=== PATIENT | female | born 1955 | race Caucasian/White ===

== ENCOUNTER → 2019-05-04 | Outpatient (CLI) | payer MEDICARE, OTHER ==
[2019-05-04 16:52] LABS: HEMATOCRIT 39.6 % (37.0-47.0); HEMOGLOBIN 12.4 g/dL (12.5-16.0); MEAN CELL VOLUME 87 fl (78-100); MEAN CORPUSCULAR HEMOGLOBIN 27 pg (27-31); MEAN CORPUSCULAR HGB CONC 31 g/dL (33-37); MEAN PLATELET VOLUME 8.9 fl (7.4-10.4); PLATELET COUNT 251 K/mm3 (130-400); RED BLOOD COUNT 4.56 M/mm3 (4.10-5.30); RED CELL DISTRIBUTION WIDTH 15.1 % (11.5-14.5); WHITE BLOOD COUNT 13.5 K/mm3 (4.8-10.8)
[2019-05-04 16:57] LABS: ALBUMIN 4.2 g/dL (3.4-4.8)
[2019-05-04 16:58] LABS: POTASSIUM 3.6 mmol/L (3.5-5.1)
[2019-05-04 16:59] LABS: CALCIUM 10.2 mg/dL (8.3-10.5)
[2019-05-04 17:00] LABS: TOTAL PROTEIN 8.3 g/dL (6.2-8.1)
[2019-05-04 17:02] LABS: TOTAL BILIRUBIN 0.4 mg/dL (0.2-1.2)
[2019-05-04 17:38] LABS: LYMPHOCYTE 13 % (20-51); MONOCYTE 5 % (3-10); NEUTROPHILS 79 % (42-75)
[2019-05-04 17:57] LABS: URINE APPEARANCE CLEAR; URINE COLOR YELLOW
[2019-05-04 17:58] LABS: URINE BILIRUBIN NEGATIVE (NEGATIVE); URINE BLOOD NEGATIVE (NEGATIVE); URINE GLUCOSE NEGATIVE (NEGATIVE); URINE KETONE NEGATIVE (NEGATIVE); URINE LEUKOCYTE ESTERASE NEGATIVE (NEGATIVE); URINE NITRATE NEGATIVE (NEGATIVE); URINE PROTEIN(semi-quant) 1+ mg/dL (NEGATIVE); URINE UROBILINOGEN NORMAL (NORMAL)
== END ==
LOC: LAB 16:24
DX: N18.5 Chronic kidney disease, stage 5 (principal); E03.9 Hypothyroidism, unspecified

== ENCOUNTER 2019-06-01 12:11 | Emergency (ER) | payer MEDICARE, OTHER ==
[~2019-06-01] VITALS: Ht 170.2 cm; Wt 118.6 kg
[2019-06-01] MEDS ORDERED: AMLODIPINE BESYL5 MG PO (12:33)
[2019-06-01] MEDS ORDERED: VITAMIN D32000 UNI1 PO (12:34)
[2019-06-01] MEDS ORDERED: LEVOTHYROXIN0.025 MG PO (12:35)
[2019-06-01] MEDS ORDERED: COLACE100 M1 PO (12:35)
[2019-06-01] MEDS ORDERED: DULOXETINE60 MG PO (12:35)
[2019-06-01] MEDS ORDERED: MAG-OX 400400 MG/TAB PO (12:36)
[2019-06-01] MEDS ORDERED: MYFORTIC360 MG PO (12:37)
[2019-06-01] MEDS ORDERED: PANTOPRAZOLE SO40 MG PO (12:37)
[2019-06-01] MEDS ORDERED: NYSTATIN 100MU/M1 ML PO (12:37)
[2019-06-01] MEDS ORDERED: MIRALAX119 GM PO (12:38)
[2019-06-01] MEDS ORDERED: PREDNISONE 5MG5 MG PO (12:41)
[2019-06-01] MEDS ORDERED: SULFAMETHOXAZO1 EACH PO (12:41)
[2019-06-01] MEDS ORDERED: TACROLIMUS1 MG PO (12:42)
[2019-06-01] MEDS ORDERED: VALCYTE450 MG PO (12:42)
[2019-06-01] MEDS ORDERED: ACETAMINOPHEN-H1 TA1 PO (12:42)
[2019-06-01] MEDS ORDERED: ZOLPIDEM TART10 MG PO (12:45)
[2019-06-01 12:57] LABS: HEMATOCRIT 32.9 % (37.0-47.0); MEAN CELL VOLUME 90 fl (78-100); MEAN CORPUSCULAR HEMOGLOBIN 27 pg (27-31); MEAN CORPUSCULAR HGB CONC 30 g/dL (33-37); MEAN PLATELET VOLUME 9.3 fl (7.4-10.4); PLATELET COUNT 154 K/mm3 (130-400); RED BLOOD COUNT 3.66 M/mm3 (4.10-5.30); RED CELL DISTRIBUTION WIDTH 16.5 % (11.5-14.5); WHITE BLOOD COUNT 13.2 K/mm3 (4.8-10.8)
[2019-06-01 13:00] LABS: ALBUMIN 3.7 g/dL (3.4-4.8); POTASSIUM 4.6 mmol/L (3.5-5.1)
[2019-06-01 13:03] LABS: TOTAL PROTEIN 6.3 g/dL (6.2-8.1)
[2019-06-01 13:05] LABS: TOTAL BILIRUBIN 0.6 mg/dL (0.2-1.2)
[2019-06-01 13:07] LABS: BAND 3 % (0-10); LYMPHOCYTE 3 % (20-51); MONOCYTE 2 % (3-10); NEUTROPHILS 88 % (42-75)
[2019-06-01 14:06] LABS: URINE APPEARANCE CLEAR; URINE BILIRUBIN NEGATIVE (NEGATIVE); URINE BLOOD NEGATIVE (NEGATIVE); URINE COLOR YELLOW; URINE GLUCOSE NEGATIVE (NEGATIVE); URINE KETONE NEGATIVE (NEGATIVE); URINE LEUKOCYTE ESTERASE NEGATIVE (NEGATIVE); URINE NITRATE NEGATIVE (NEGATIVE); URINE PROTEIN(semi-quant) TRACE mg/dL (NEGATIVE); URINE UROBILINOGEN NORMAL (NORMAL)
[2019-06-01] MEDS ORDERED: NORCO 10-325 T1 EACH PO (15:09)
[2019-06-01 15:11] VITALS: BP 175/91
== END 2019-06-01 15:23 | disposition home or self-care (01) ==
LOC: ED 12:11
PROVIDERS: Nurse Practitioner
DX: G89.18 Other acute postprocedural pain (principal); I10 Essential (primary) hypertension; K21.9 Gastro-esophageal reflux disease without esophagitis; Z96.643 Presence of artificial hip joint, bilateral; Z87.891 Personal history of nicotine dependence; Z94.0 Kidney transplant status; Z79.52 Long term (current) use of systemic steroids
CPT/HCPCS: J7030

== ENCOUNTER → 2019-06-26 | Outpatient (CLI) | payer MEDICARE, OTHER ==
[2019-06-01 15:11] VITALS: BP 175/91
[~2019-06-26] MED LIST: ACETAMINOPHEN-H1 TA1 PO; AMLODIPINE BESYL5 MG PO; COLACE100 M1 PO; DULOXETINE60 MG PO; LEVOTHYROXIN0.025 MG PO; MAG-OX 400400 MG/TAB PO; MIRALAX119 GM PO; MYFORTIC360 MG PO; NORCO 10-325 T1 EACH PO; NYSTATIN 100MU/M1 ML PO; PANTOPRAZOLE SO40 MG PO; PREDNISONE 5MG5 MG PO; SULFAMETHOXAZO1 EACH PO; TACROLIMUS1 MG PO; VALCYTE450 MG PO; VITAMIN D32000 UNI1 PO; ZOLPIDEM TART10 MG PO
[2019-06-26 10:34] LABS: HEMATOCRIT 33.9 % (37.0-47.0); HEMOGLOBIN 10.6 g/dL (12.5-16.0); MEAN CELL VOLUME 87 fl (78-100); MEAN CORPUSCULAR HEMOGLOBIN 27 pg (27-31); MEAN CORPUSCULAR HGB CONC 31 g/dL (33-37); MEAN PLATELET VOLUME 9.6 fl (7.4-10.4); PLATELET COUNT 258 K/mm3 (130-400); RED BLOOD COUNT 3.89 M/mm3 (4.10-5.30); RED CELL DISTRIBUTION WIDTH 15.2 % (11.5-14.5); WHITE BLOOD COUNT 11.7 K/mm3 (4.8-10.8)
[2019-06-26 11:06] LABS: ALBUMIN 3.7 g/dL (3.4-4.8); POTASSIUM 4.5 mmol/L (3.5-5.1)
[2019-06-26 11:07] LABS: CALCIUM 9.4 mg/dL (8.3-10.5)
[2019-06-26 11:15] LABS: MAGNESIUM 1.07 mg/dL (1.60-2.60)
[2019-06-26 11:48] LABS: URINE APPEARANCE HAZY; URINE BILIRUBIN NEGATIVE (NEGATIVE); URINE BLOOD TRACE (NEGATIVE); URINE COLOR YELLOW; URINE GLUCOSE NEGATIVE (NEGATIVE); URINE KETONE NEGATIVE (NEGATIVE); URINE LEUKOCYTE ESTERASE NEGATIVE (NEGATIVE); URINE NITRATE NEGATIVE (NEGATIVE); URINE PROTEIN(semi-quant) NEGATIVE (NEGATIVE); URINE UROBILINOGEN NORMAL (NORMAL); URINE WBC 0-1 /hpf (0-3)
[2019-06-26 12:06] LABS: LYMPHOCYTE 5 % (20-51); MONOCYTE 4 % (3-10); NEUTROPHILS 90 % (42-75)
[2019-06-27 14:04] LABS: TACROLIMUS (PROGRAF) 25.8 ng/mL (5.0-15.0)
== END ==
LOC: LAB 09:23
DX: Z48.22 Encounter for aftercare following kidney transplant (principal); Z94.0 Kidney transplant status; Z79.899 Other long term (current) drug therapy

== ENCOUNTER → 2019-07-09 | Outpatient (CLI) | payer MEDICARE, OTHER ==
[2019-07-09 10:20] LABS: HEMATOCRIT 34.1 % (37.0-47.0); HEMOGLOBIN 10.7 g/dL (12.5-16.0); MEAN CELL VOLUME 87 fl (78-100); MEAN CORPUSCULAR HEMOGLOBIN 27 pg (27-31); MEAN CORPUSCULAR HGB CONC 31 g/dL (33-37); MEAN PLATELET VOLUME 8.9 fl (7.4-10.4); PLATELET COUNT 264 K/mm3 (130-400); RED CELL DISTRIBUTION WIDTH 16.2 % (11.5-14.5); WHITE BLOOD COUNT 13.1 K/mm3 (4.8-10.8)
[2019-07-09 10:30] LABS: ALBUMIN 3.9 g/dL (3.4-4.8)
[2019-07-09 10:31] LABS: POTASSIUM 4.3 mmol/L (3.5-5.1)
[2019-07-09 10:32] LABS: CALCIUM 9.5 mg/dL (8.3-10.5)
[2019-07-09 10:35] LABS: LYMPHOCYTE 4 % (20-51); MONOCYTE 3 % (3-10); NEUTROPHILS 92 % (42-75)
[2019-07-09 10:39] LABS: MAGNESIUM 1.34 mg/dL (1.60-2.60)
[2019-07-09 18:03] LABS: PH-URINE 5.5 (5.0 - 8.0); URINE APPEARANCE CLEAR; URINE BILIRUBIN NEGATIVE (NEGATIVE); URINE BLOOD NEGATIVE (NEGATIVE); URINE COLOR YELLOW; URINE GLUCOSE NEGATIVE (NEGATIVE); URINE KETONE NEGATIVE (NEGATIVE); URINE NITRATE NEGATIVE (NEGATIVE); URINE PROTEIN(semi-quant) NEGATIVE (NEGATIVE); URINE UROBILINOGEN NORMAL (NORMAL)
[2019-07-09 18:04] LABS: URINE LEUKOCYTE ESTERASE NEGATIVE (NEGATIVE); URINE MUCUS PRESENT (NOT PRESENT)
== END ==
LOC: LAB 10:04
DX: Z48.22 Encounter for aftercare following kidney transplant (principal); Z79.899 Other long term (current) drug therapy

== ENCOUNTER → 2019-07-24 | Outpatient (CLI) | payer MEDICARE, OTHER ==
[2019-07-24 07:08] LABS: HEMATOCRIT 36.1 % (37.0-47.0); HEMOGLOBIN 11.3 g/dL (12.5-16.0); MEAN CELL VOLUME 90 fl (78-100); MEAN CORPUSCULAR HEMOGLOBIN 28 pg (27-31); MEAN CORPUSCULAR HGB CONC 31 g/dL (33-37); MEAN PLATELET VOLUME 9.6 fl (7.4-10.4); PLATELET COUNT 195 K/mm3 (130-400); RED BLOOD COUNT 4.03 M/mm3 (4.10-5.30); RED CELL DISTRIBUTION WIDTH 17.2 % (11.5-14.5); WHITE BLOOD COUNT 11.5 K/mm3 (4.8-10.8)
[2019-07-24 07:16] LABS: ALBUMIN 3.9 g/dL (3.4-4.8); POTASSIUM 4.3 mmol/L (3.5-5.1)
[2019-07-24 07:17] LABS: CALCIUM 9.5 mg/dL (8.3-10.5)
[2019-07-24 07:29] LABS: LYMPHOCYTE 5 % (20-51); MONOCYTE 5 % (3-10); NEUTROPHILS 90 % (42-75); OVALOCYTES 1+; POLYCHROMASIA 1+; TEAR DROP CELLS 1+
== END ==
LOC: LAB 06:52
PROVIDERS: Internal Medicine
DX: Z48.22 Encounter for aftercare following kidney transplant (principal); Z79.899 Other long term (current) drug therapy

== ENCOUNTER → 2019-08-02 | Outpatient (CLI) | payer MEDICARE, OTHER ==
[2019-08-02 07:51] LABS: EOS # 0.1 (0.04-0.40); EOS % 1.9 % (1.0-5.0); HEMATOCRIT 36.5 % (37.0-47.0); HEMOGLOBIN 11.4 g/dL (12.5-16.0); MEAN CELL VOLUME 90 fl (78-100); MEAN CORPUSCULAR HEMOGLOBIN 28 pg (27-31); MEAN CORPUSCULAR HGB CONC 31 g/dL (33-37); MEAN PLATELET VOLUME 9.1 fl (7.4-10.4); MONO # 0.1 (0.20-0.80); NEU # 2.5 (1.40-6.50); PLATELET COUNT 180 K/mm3 (130-400); RED BLOOD COUNT 4.05 M/mm3 (4.10-5.30); RED CELL DISTRIBUTION WIDTH 16.5 % (11.5-14.5); WHITE BLOOD COUNT 3.2 K/mm3 (4.8-10.8)
[2019-08-02 07:54] LABS: LYMPH# 0.4 (1.50-4.00)
[2019-08-02 08:11] LABS: URINE APPEARANCE CLEAR; URINE BILIRUBIN NEGATIVE (NEGATIVE); URINE BLOOD NEGATIVE (NEGATIVE); URINE COLOR YELLOW; URINE GLUCOSE NEGATIVE (NEGATIVE); URINE KETONE NEGATIVE (NEGATIVE); URINE LEUKOCYTE ESTERASE NEGATIVE (NEGATIVE); URINE MUCUS PRESENT (NOT PRESENT); URINE NITRATE NEGATIVE (NEGATIVE); URINE PROTEIN(semi-quant) TRACE mg/dL (NEGATIVE); URINE UROBILINOGEN NORMAL (NORMAL)
[2019-08-02 08:14] LABS: ALBUMIN 4.1 g/dL (3.4-4.8); POTASSIUM 4.1 mmol/L (3.5-5.1)
[2019-08-02 08:16] LABS: CALCIUM 9.6 mg/dL (8.3-10.5)
[2019-08-02 08:22] LABS: MAGNESIUM 1.55 mg/dL (1.60-2.60)
[2019-08-03 16:16] LABS: TACROLIMUS (PROGRAF) 9.2 ng/mL (5.0-15.0)
== END ==
LOC: LAB 07:37
PROVIDERS: Internal Medicine
DX: Z48.22 Encounter for aftercare following kidney transplant (principal); Z51.81 Encounter for therapeutic drug level monitoring; Z79.899 Other long term (current) drug therapy

== ENCOUNTER → 2019-09-25 | Outpatient (CLI) | payer MEDICARE, OTHER ==
[2019-09-25 07:18] LABS: HEMATOCRIT 38.6 % (37.0-47.0); HEMOGLOBIN 12.4 g/dL (12.5-16.0); MEAN CELL VOLUME 91 fl (78-100); MEAN CORPUSCULAR HEMOGLOBIN 29 pg (27-31); MEAN CORPUSCULAR HGB CONC 32 g/dL (33-37); MEAN PLATELET VOLUME 8.9 fl (7.4-10.4); PLATELET COUNT 228 K/mm3 (130-400); RED BLOOD COUNT 4.24 M/mm3 (4.10-5.30); RED CELL DISTRIBUTION WIDTH 14.4 % (11.5-14.5); WHITE BLOOD COUNT 10.8 K/mm3 (4.8-10.8)
[2019-09-25 07:34] LABS: CALCIUM 9.8 mg/dL (8.3-10.5)
[2019-09-25 07:41] LABS: MAGNESIUM 1.67 mg/dL (1.60-2.60)
[2019-09-25 07:45] LABS: LYMPHOCYTE 7 % (20-51); MONOCYTE 3 % (3-10); NEUTROPHILS 88 % (42-75); OVALOCYTES 2+; TEAR DROP CELLS 1+
[2019-09-25 19:29] LABS: URINE APPEARANCE HAZY; URINE BILIRUBIN NEGATIVE (NEGATIVE); URINE BLOOD NEGATIVE (NEGATIVE); URINE COLOR YELLOW; URINE GLUCOSE NEGATIVE (NEGATIVE); URINE KETONE NEGATIVE (NEGATIVE); URINE LEUKOCYTE ESTERASE NEGATIVE (NEGATIVE); URINE NITRATE NEGATIVE (NEGATIVE); URINE PROTEIN(semi-quant) TRACE mg/dL (NEGATIVE); URINE UROBILINOGEN NORMAL (NORMAL)
== END ==
LOC: LAB 07:02
DX: Z48.22 Encounter for aftercare following kidney transplant (principal); Z79.899 Other long term (current) drug therapy

== ENCOUNTER → 2019-10-01 | Outpatient (CLI) | payer MEDICARE, OTHER ==
[2019-10-01 07:22] LABS: HEMATOCRIT 38.7 % (37.0-47.0); HEMOGLOBIN 12.5 g/dL (12.5-16.0); MEAN CELL VOLUME 90 fl (78-100); MEAN CORPUSCULAR HEMOGLOBIN 29 pg (27-31); MEAN CORPUSCULAR HGB CONC 32 g/dL (33-37); PLATELET COUNT 225 K/mm3 (130-400); RED BLOOD COUNT 4.29 M/mm3 (4.10-5.30); RED CELL DISTRIBUTION WIDTH 14.2 % (11.5-14.5); WHITE BLOOD COUNT 9.5 K/mm3 (4.8-10.8)
[2019-10-01 08:41] LABS: LYMPHOCYTE 10 % (20-51); MONOCYTE 2 % (3-10); NEUTROPHILS 88 % (42-75)
[2019-10-01 10:24] LABS: ALBUMIN 4.2 g/dL (3.4-4.8); POTASSIUM 4.1 mmol/L (3.5-5.1)
[2019-10-01 10:26] LABS: CALCIUM 11.3 mg/dL (8.3-10.5)
== END ==
LOC: LAB 07:02
PROVIDERS: Internal Medicine
DX: Z48.22 Encounter for aftercare following kidney transplant (principal); Z79.899 Other long term (current) drug therapy

== ENCOUNTER → 2019-10-25 | Outpatient (CLI) | payer MEDICARE, OTHER ==
[2019-10-25 07:26] LABS: HEMATOCRIT 37.2 % (37.0-47.0); HEMOGLOBIN 11.9 g/dL (12.5-16.0); MEAN CELL VOLUME 91 fl (78-100); MEAN CORPUSCULAR HEMOGLOBIN 29 pg (27-31); MEAN CORPUSCULAR HGB CONC 32 g/dL (33-37); MEAN PLATELET VOLUME 9.1 fl (7.4-10.4); PLATELET COUNT 214 K/mm3 (130-400); RED BLOOD COUNT 4.07 M/mm3 (4.10-5.30); RED CELL DISTRIBUTION WIDTH 13.6 % (11.5-14.5)
[2019-10-25 07:34] LABS: ALBUMIN 3.9 g/dL (3.4-4.8)
[2019-10-25 07:35] LABS: URINE APPEARANCE CLEAR; URINE BILIRUBIN NEGATIVE (NEGATIVE); URINE BLOOD TRACE (NEGATIVE); URINE COLOR YELLOW; URINE GLUCOSE NEGATIVE (NEGATIVE); URINE KETONE NEGATIVE (NEGATIVE); URINE LEUKOCYTE ESTERASE NEGATIVE (NEGATIVE); URINE MUCUS PRESENT (NOT PRESENT); URINE NITRATE NEGATIVE (NEGATIVE); URINE PROTEIN(semi-quant) TRACE mg/dL (NEGATIVE); URINE UROBILINOGEN NORMAL (NORMAL)
[2019-10-25 07:36] LABS: CALCIUM 8.6 mg/dL (8.3-10.5)
[2019-10-25 07:43] LABS: MAGNESIUM 1.53 mg/dL (1.60-2.60)
[2019-10-25 07:51] LABS: LYMPHOCYTE 5 % (20-51); MONOCYTE 4 % (3-10); NEUTROPHILS 88 % (42-75); OVALOCYTES 1+
[2019-10-25 16:16] LABS: PTH,INTACT 126.6 pg/mL (6.6-88.9)
[2019-10-26 12:16] LABS: TACROLIMUS (PROGRAF) 7.7 ng/mL (5.0-15.0)
[2019-10-30 14:35] LABS: CYTOMEGALOVIRUS DNA PCR Not Detected (()); CYTOMEGALOVIRUS DNA PCR LOG Not Detected (())
== END ==
LOC: LAB 07:06
DX: Z48.22 Encounter for aftercare following kidney transplant (principal); Z79.899 Other long term (current) drug therapy

== ENCOUNTER → 2019-11-20 | Outpatient (CLI) | payer MEDICARE, OTHER ==
[2019-11-20 07:28] LABS: HEMATOCRIT 39.5 % (37.0-47.0); HEMOGLOBIN 12.4 g/dL (12.5-16.0); MEAN CELL VOLUME 91 fl (78-100); MEAN CORPUSCULAR HEMOGLOBIN 29 pg (27-31); MEAN CORPUSCULAR HGB CONC 31 g/dL (33-37); MEAN PLATELET VOLUME 9.1 fl (7.4-10.4); PLATELET COUNT 259 K/mm3 (130-400); RED BLOOD COUNT 4.35 M/mm3 (4.10-5.30); RED CELL DISTRIBUTION WIDTH 13.8 % (11.5-14.5)
[2019-11-20 08:16] LABS: POTASSIUM 3.9 mmol/L (3.5-5.1)
[2019-11-20 08:17] LABS: CALCIUM 9.6 mg/dL (8.3-10.5)
[2019-11-20 08:21] LABS: WHITE BLOOD COUNT 20.3 K/mm3 (4.8-10.8)
[2019-11-20 08:22] LABS: LYMPHOCYTE 6 % (20-51); MONOCYTE 6 % (3-10); NEUTROPHILS 87 % (42-75)
[2019-11-20 08:24] LABS: MAGNESIUM 1.77 mg/dL (1.60-2.60)
[2019-11-20 21:59] LABS: PH-URINE 5.5 (5.0 - 8.0); URINE APPEARANCE CLOUDY; URINE BILIRUBIN NEGATIVE (NEGATIVE); URINE BLOOD TRACE (NEGATIVE); URINE COLOR YELLOW; URINE GLUCOSE NEGATIVE (NEGATIVE); URINE KETONE NEGATIVE (NEGATIVE); URINE LEUKOCYTE ESTERASE TRACE (NEGATIVE); URINE NITRATE NEGATIVE (NEGATIVE); URINE PROTEIN(semi-quant) TRACE mg/dL (NEGATIVE); URINE UROBILINOGEN NORMAL (NORMAL)
[2019-11-20 22:01] LABS: URINE MUCUS PRESENT (NOT PRESENT)
[2019-11-22 14:51] LABS: CYTOMEGALOVIRUS DNA PCR Not Detected (()); CYTOMEGALOVIRUS DNA PCR LOG Not Detected (())
== END ==
LOC: LAB 07:04
PROVIDERS: Internal Medicine
DX: Z48.22 Encounter for aftercare following kidney transplant (principal); Z79.899 Other long term (current) drug therapy

== ENCOUNTER → 2019-12-25 | Outpatient (CLI) | payer MEDICARE, OTHER ==
[2019-12-25 12:29] LABS: HEMOGLOBIN 11.9 g/dL (12.5-16.0); MEAN CELL VOLUME 91 fl (78-100); MEAN CORPUSCULAR HEMOGLOBIN 28 pg (27-31); MEAN CORPUSCULAR HGB CONC 31 g/dL (33-37); MEAN PLATELET VOLUME 8.7 fl (7.4-10.4); PLATELET COUNT 240 K/mm3 (130-400); RED CELL DISTRIBUTION WIDTH 14.3 % (11.5-14.5); WHITE BLOOD COUNT 16.1 K/mm3 (4.8-10.8)
[2019-12-25 12:38] LABS: ALBUMIN 3.7 g/dL (3.4-4.8)
[2019-12-25 12:39] LABS: POTASSIUM 4.2 mmol/L (3.5-5.1)
[2019-12-25 12:40] LABS: CALCIUM 9.4 mg/dL (8.3-10.5)
[2019-12-25 12:41] LABS: BAND 2 % (0-10); LYMPHOCYTE 4 % (20-51); MONOCYTE 8 % (3-10); NEUTROPHILS 84 % (42-75)
[2019-12-25 12:47] LABS: MAGNESIUM 1.69 mg/dL (1.60-2.60)
[2019-12-25 17:24] LABS: URINE APPEARANCE CLEAR; URINE BILIRUBIN NEGATIVE (NEGATIVE); URINE COLOR YELLOW; URINE GLUCOSE NEGATIVE (NEGATIVE); URINE KETONE NEGATIVE (NEGATIVE); URINE NITRATE NEGATIVE (NEGATIVE); URINE PROTEIN(semi-quant) 1+ mg/dL (NEGATIVE); URINE UROBILINOGEN NORMAL (NORMAL)
[2019-12-25 17:25] LABS: URINE BLOOD NEGATIVE (NEGATIVE); URINE LEUKOCYTE ESTERASE NEGATIVE (NEGATIVE); URINE MUCUS PRESENT (NOT PRESENT)
[2019-12-27 14:07] LABS: CYTOMEGALOVIRUS DNA PCR Not Detected (()); CYTOMEGALOVIRUS DNA PCR LOG Not Detected (())
== END ==
LOC: LAB 12:11
DX: Z48.22 Encounter for aftercare following kidney transplant (principal); Z79.899 Other long term (current) drug therapy

== ENCOUNTER → 2020-01-22 | Outpatient (CLI) | payer MEDICARE, OTHER ==
[2020-01-22 09:19] LABS: ALBUMIN 3.8 g/dL (3.4-4.8)
[2020-01-22 09:20] LABS: POTASSIUM 4.2 mmol/L (3.5-5.1)
[2020-01-22 09:21] LABS: CALCIUM 9.1 mg/dL (8.3-10.5)
[2020-01-22 09:22] LABS: URINE APPEARANCE HAZY; URINE BILIRUBIN NEGATIVE (NEGATIVE); URINE BLOOD NEGATIVE (NEGATIVE); URINE COLOR YELLOW; URINE GLUCOSE NEGATIVE (NEGATIVE); URINE KETONE NEGATIVE (NEGATIVE); URINE LEUKOCYTE ESTERASE NEGATIVE (NEGATIVE); URINE NITRATE NEGATIVE (NEGATIVE); URINE PROTEIN(semi-quant) TRACE mg/dL (NEGATIVE); URINE UROBILINOGEN NORMAL (NORMAL); URINE WBC 0-1 /hpf (0-3)
[2020-01-22 09:28] LABS: MAGNESIUM 1.65 mg/dL (1.60-2.60)
[2020-01-22 09:31] LABS: HEMATOCRIT 37.9 % (37.0-47.0); HEMOGLOBIN 11.5 g/dL (12.5-16.0); MEAN CELL VOLUME 91 fl (78-100); MEAN CORPUSCULAR HEMOGLOBIN 27 pg (27-31); MEAN CORPUSCULAR HGB CONC 30 g/dL (33-37); PLATELET COUNT 239 K/mm3 (130-400); RED BLOOD COUNT 4.19 M/mm3 (4.10-5.30); RED CELL DISTRIBUTION WIDTH 14.5 % (11.5-14.5); WHITE BLOOD COUNT 15.9 K/mm3 (4.8-10.8)
[2020-01-22 10:18] LABS: LYMPHOCYTE 8 % (20-51); MONOCYTE 4 % (3-10); NEUTROPHILS 87 % (42-75)
[2020-01-23 00:03] LABS: TACROLIMUS (PROGRAF) 5.7 ng/mL (5.0-15.0)
== END ==
LOC: LAB 08:56
DX: Z48.22 Encounter for aftercare following kidney transplant (principal); Z79.899 Other long term (current) drug therapy

== ENCOUNTER → 2020-01-28 | Outpatient (CLI) | payer MEDICARE, OTHER ==
[2020-01-28 10:46] LABS: ALBUMIN 3.7 g/dL (3.4-4.8)
[2020-01-28 10:48] LABS: CALCIUM 9.3 mg/dL (8.3-10.5)
== END ==
LOC: LAB 10:27
DX: T86.10 Unspecified complication of kidney transplant (principal); Z79.899 Other long term (current) drug therapy

== ENCOUNTER → 2020-02-22 | Outpatient (CLI) | payer MEDICARE, OTHER ==
[2020-02-22 14:30] LABS: HEMOGLOBIN 12.1 g/dL (12.5-16.0); MEAN CELL VOLUME 88 fl (78-100); MEAN CORPUSCULAR HEMOGLOBIN 27 pg (27-31); MEAN CORPUSCULAR HGB CONC 31 g/dL (33-37); MEAN PLATELET VOLUME 9.1 fl (7.4-10.4); PLATELET COUNT 271 K/mm3 (130-400); RED BLOOD COUNT 4.41 M/mm3 (4.10-5.30); RED CELL DISTRIBUTION WIDTH 14.5 % (11.5-14.5); WHITE BLOOD COUNT 14.2 K/mm3 (4.8-10.8)
[2020-02-22 14:39] LABS: ALBUMIN 3.9 g/dL (3.4-4.8); POTASSIUM 4.2 mmol/L (3.5-5.1)
[2020-02-22 14:41] LABS: CALCIUM 9.2 mg/dL (8.3-10.5)
[2020-02-22 14:47] LABS: MAGNESIUM 1.72 mg/dL (1.60-2.60)
[2020-02-22 14:56] LABS: URINE APPEARANCE CLEAR; URINE BILIRUBIN NEGATIVE (NEGATIVE); URINE BLOOD NEGATIVE (NEGATIVE); URINE COLOR YELLOW; URINE GLUCOSE NEGATIVE (NEGATIVE); URINE KETONE NEGATIVE (NEGATIVE); URINE LEUKOCYTE ESTERASE NEGATIVE (NEGATIVE); URINE NITRATE NEGATIVE (NEGATIVE); URINE PROTEIN(semi-quant) NEGATIVE (NEGATIVE); URINE UROBILINOGEN NORMAL (NORMAL)
[2020-02-22 14:57] LABS: URINE MUCUS PRESENT (NOT PRESENT)
[2020-02-22 15:35] LABS: LYMPHOCYTE 7 % (20-51); MONOCYTE 5 % (3-10); NEUTROPHILS 85 % (42-75)
[2020-02-23 12:35] LABS: TACROLIMUS (PROGRAF) 6.6 ng/mL (5.0-15.0)
[2020-02-26 15:06] LABS: CYTOMEGALOVIRUS DNA PCR Not Detected (()); CYTOMEGALOVIRUS DNA PCR LOG Not Detected (())
[2020-02-28 07:34] LABS: BK VIRUS, DNA LOG, PLASMA Not Detected (()); BK VIRUS, QUANT PCR, PLASMA Not Detected (())
== END ==
LOC: LAB 14:10
DX: Z48.22 Encounter for aftercare following kidney transplant (principal); Z79.899 Other long term (current) drug therapy

== ENCOUNTER → 2020-03-24 | Outpatient (CLI) | payer MEDICARE, OTHER | LOC: MAMMO 12:11 | DX: Z13.820 Encounter for screening for osteoporosis (principal); M85.80 Other specified disorders of bone density and structure, unspecified site ==

== ENCOUNTER → 2020-03-24 | Outpatient (CLI) | payer MEDICARE, OTHER | LOC: MAMMO 12:12 | DX: Z12.31 Encounter for screening mammogram for malignant neoplasm of breast (principal) ==

== ENCOUNTER → 2020-05-01 | Outpatient (CLI) | payer MEDICARE, OTHER ==
[2020-05-01 07:45] LABS: CALCIUM 9.2 mg/dL (8.3-10.5)
[2020-05-01 07:51] LABS: MAGNESIUM 1.78 mg/dL (1.60-2.60)
[2020-05-01 21:39] LABS: TACROLIMUS (PROGRAF) 6.9 ng/mL (5.0-15.0)
[2020-05-07 16:59] LABS: CYTOMEGALOVIRUS DNA PCR Not Detected (()); CYTOMEGALOVIRUS DNA PCR LOG Not Detected (())
== END ==
LOC: LAB 07:16
PROVIDERS: Internal Medicine
DX: Z48.22 Encounter for aftercare following kidney transplant (principal); M85.80 Other specified disorders of bone density and structure, unspecified site; Z79.899 Other long term (current) drug therapy

== ENCOUNTER → 2020-05-29 | Outpatient (CLI) | payer MEDICARE, OTHER ==
[2020-05-29 07:48] LABS: ALBUMIN 3.9 g/dL (3.4-4.8)
[2020-05-29 07:50] LABS: CALCIUM 9.1 mg/dL (8.3-10.5)
[2020-05-29 07:57] LABS: MAGNESIUM 1.63 mg/dL (1.60-2.60)
[2020-05-29 21:33] LABS: TACROLIMUS (PROGRAF) 7.4 ng/mL (5.0-15.0)
[2020-06-03 05:50] LABS: CYTOMEGALOVIRUS DNA PCR Not Detected (()); CYTOMEGALOVIRUS DNA PCR LOG Not Detected (())
== END ==
LOC: LAB 07:12
PROVIDERS: Internal Medicine Advanced Heart Failure and Transplant Cardiology
DX: Z48.22 Encounter for aftercare following kidney transplant (principal); Z79.899 Other long term (current) drug therapy

== ENCOUNTER → 2020-07-25 | Outpatient (CLI) | payer MEDICARE, OTHER | LOC: LAB 16:06 | DX: E03.4 Atrophy of thyroid (acquired) (principal); R73.03 Prediabetes ==

== ENCOUNTER → 2020-11-26 | Outpatient (CLI) | payer MEDICARE, OTHER ==
[2020-11-26 07:35] LABS: HEMATOCRIT 41.6 % (37.0-47.0); HEMOGLOBIN 13.1 g/dL (12.5-16.0); MEAN CELL VOLUME 87 fl (78-100); MEAN CORPUSCULAR HEMOGLOBIN 28 pg (27-31); MEAN CORPUSCULAR HGB CONC 32 g/dL (33-37); MEAN PLATELET VOLUME 9.1 fl (7.4-10.4); PLATELET COUNT 258 K/mm3 (130-400); RED BLOOD COUNT 4.76 M/mm3 (4.10-5.30); RED CELL DISTRIBUTION WIDTH 15.1 % (11.5-14.5); WHITE BLOOD COUNT 16.3 K/mm3 (4.8-10.8)
[2020-11-26 07:42] LABS: URINE APPEARANCE CLOUDY; URINE BILIRUBIN NEGATIVE (NEGATIVE); URINE BLOOD NEGATIVE (NEGATIVE); URINE COLOR YELLOW; URINE GLUCOSE NEGATIVE (NEGATIVE); URINE KETONE NEGATIVE (NEGATIVE); URINE LEUKOCYTE ESTERASE NEGATIVE (NEGATIVE); URINE NITRATE NEGATIVE (NEGATIVE); URINE PROTEIN(semi-quant) NEGATIVE (NEGATIVE); URINE UROBILINOGEN NORMAL (NORMAL); URINE WBC 0-1 /hpf (0-3)
[2020-11-26 07:45] LABS: ALBUMIN 3.9 g/dL (3.4-4.8)
[2020-11-26 07:46] LABS: CALCIUM 9.2 mg/dL (8.3-10.5)
[2020-11-26 07:48] LABS: TOTAL PROTEIN 6.7 g/dL (6.2-8.1)
[2020-11-26 07:49] LABS: TOTAL BILIRUBIN 0.4 mg/dL (0.2-1.2)
[2020-11-26 07:52] LABS: LYMPHOCYTE 3 % (20-51); MONOCYTE 5 % (3-10); NEUTROPHILS 90 % (42-75)
[2020-11-26 07:53] LABS: DIRECT BILIRUBIN 0.2 mg/dL (0.0-0.5); OVALOCYTES 1+
[2020-11-26 07:55] LABS: MAGNESIUM 1.86 mg/dL (1.60-2.60)
[2020-11-26 22:12] LABS: TACROLIMUS (PROGRAF) 6.9 ng/mL (5.0-15.0)
[2020-11-28 11:21] LABS: CYTOMEGALOVIRUS DNA PCR Not Detected (()); CYTOMEGALOVIRUS DNA PCR LOG Not Detected (())
[2020-12-01 12:48] LABS: BK VIRUS, DNA LOG, PLASMA Not Detected (()); BK VIRUS, QUANT PCR, PLASMA Not Detected (())
== END ==
LOC: LAB 07:06
DX: I12.0 Hypertensive chronic kidney disease with stage 5 chronic kidney disease or end stage renal disease (principal); N18.5 Chronic kidney disease, stage 5; Z48.22 Encounter for aftercare following kidney transplant; Z79.899 Other long term (current) drug therapy

== ENCOUNTER → 2021-03-31 | Outpatient (CLI) | payer MEDICARE, OTHER ==
[2021-03-31 17:12] LABS: BASO # 0.02 (0.02-0.10); EOS % 1.3 % (1.0-5.0); HEMATOCRIT 41.5 % (37.0-47.0); LYMPH# 0.63 (1.50-4.00); MEAN CELL VOLUME 87 fl (78-100); MEAN CORPUSCULAR HEMOGLOBIN 27 pg (27-31); MEAN CORPUSCULAR HGB CONC 31 g/dL (33-37); MEAN PLATELET VOLUME 8.9 fl (7.4-10.4); MONO # 0.53 (0.20-0.80); NEU # 14.49 (1.40-6.50); PLATELET COUNT 223 K/mm3 (130-400); RED BLOOD COUNT 4.79 M/mm3 (4.10-5.30); RED CELL DISTRIBUTION WIDTH 14.5 % (11.5-14.5); WHITE BLOOD COUNT 15.9 K/mm3 (4.8-10.8)
[2021-03-31 17:19] LABS: POTASSIUM 4.1 mmol/L (3.5-5.1)
[2021-03-31 17:20] LABS: CALCIUM 9.4 mg/dL (8.3-10.5)
[2021-03-31 17:27] LABS: MAGNESIUM 1.55 mg/dL (1.60-2.60)
[2021-04-01 22:10] LABS: TACROLIMUS (PROGRAF) 7.7 ng/mL (5.0-15.0)
[2021-04-03 15:34] LABS: CYTOMEGALOVIRUS DNA PCR Not Detected (()); CYTOMEGALOVIRUS DNA PCR LOG Not Detected (())
== END ==
LOC: LAB 16:57
DX: I12.0 Hypertensive chronic kidney disease with stage 5 chronic kidney disease or end stage renal disease (principal); N18.5 Chronic kidney disease, stage 5; Z94.0 Kidney transplant status

== ENCOUNTER → 2021-04-01 | Outpatient (CLI) | payer MEDICARE, OTHER ==
[2021-04-01 12:49] LABS: URINE APPEARANCE HAZY; URINE BILIRUBIN 1+ (NEGATIVE); URINE BLOOD NEGATIVE (NEGATIVE); URINE COLOR YELLOW; URINE GLUCOSE NEGATIVE (NEGATIVE); URINE KETONE NEGATIVE (NEGATIVE); URINE LEUKOCYTE ESTERASE TRACE (NEGATIVE); URINE NITRATE NEGATIVE (NEGATIVE); URINE PROTEIN(semi-quant) TRACE mg/dL (NEGATIVE); URINE UROBILINOGEN NORMAL (NORMAL)
[2021-04-01 12:50] LABS: URINE MUCUS PRESENT (NOT PRESENT)
== END ==
LOC: LAB 12:17
DX: I12.0 Hypertensive chronic kidney disease with stage 5 chronic kidney disease or end stage renal disease (principal); N18.5 Chronic kidney disease, stage 5; Z94.0 Kidney transplant status

== ENCOUNTER 2021-08-14 12:08 | Emergency (ER) | payer MEDICARE ==
[~2021-08-14] VITALS: Ht 170.2 cm; Wt 117.1 kg
[2021-08-14 13:13] LABS: HEMATOCRIT 38.1 % (37.0-47.0); HEMOGLOBIN 11.9 g/dL (12.5-16.0); MEAN CELL VOLUME 89 fl (78-100); MEAN CORPUSCULAR HEMOGLOBIN 28 pg (27-31); MEAN CORPUSCULAR HGB CONC 31 g/dL (33-37); MEAN PLATELET VOLUME 9.6 fl (7.4-10.4); PLATELET COUNT 164 K/mm3 (130-400); RED BLOOD COUNT 4.27 M/mm3 (4.10-5.30); RED CELL DISTRIBUTION WIDTH 14.9 % (11.5-14.5)
[2021-08-14 13:30] LABS: ALBUMIN 3.5 g/dL (3.4-4.8); POTASSIUM 4.2 mmol/L (3.5-5.1); SODIUM 136 mmol/L (136-145)
[2021-08-14 13:31] LABS: CALCIUM 8.8 mg/dL (8.3-10.5)
[2021-08-14 13:32] LABS: GLUCOSE 294 mg/dL (65-105); TOTAL PROTEIN 6.7 g/dL (6.2-8.1)
[2021-08-14 13:33] LABS: CARBON DIOXIDE 22 mmol/L (23-31)
[2021-08-14 13:34] LABS: TOTAL BILIRUBIN 1.2 mg/dL (0.2-1.2)
[2021-08-14 13:37] LABS: AST-SGOT 29 U/L (5-34)
[2021-08-14 13:39] LABS: ALT/SGPT 28 U/L (0-55)
[2021-08-14 13:48] LABS: TROPONIN-I < 0.03 ng/mL (<0.030)
[2021-08-14 13:54] LABS: LYMPHOCYTE 5 % (20-51); MONOCYTE 5 % (3-10); NEUTROPHILS 90 % (42-75)
[2021-08-14] MEDS ORDERED: ENVARSUS XR1 MG PO (14:01)
[2021-08-14] MEDS ORDERED: PREDNISONE 5MG5 MG PO (14:07)
[2021-08-14] MEDS ORDERED: MYCOPHENOLATE500 MG PO (14:08)
[2021-08-14] MEDS ORDERED: CARVEDILOL6.25 MG PO (14:09)
[2021-08-14] MEDS ORDERED: NORVASC 10MG10 MG PO (14:11)
[2021-08-14 21:05] VITALS: BP 97/54
== END 2021-08-14 21:05 | disposition other institution (70) ==
LOC: ED 12:08
PROVIDERS: Nurse Practitioner
DX: U07.1 COVID-19 (principal); J12.82 Pneumonia due to coronavirus disease 2019; D84.9 Immunodeficiency, unspecified; Z94.0 Kidney transplant status
CPT/HCPCS: J0696; J1100; J7030

== ENCOUNTER 2021-08-19 10:49 | Inpatient (IN) | payer MEDICARE ==
[~2021-08-19] VITALS: Ht 170.2 cm; Wt 110.7 kg
[~2021-08-19 10:49] MED LIST changes: +CARVEDILOL6.25 MG PO; +ENVARSUS XR1 MG PO; +MYCOPHENOLATE500 MG PO; +NORVASC 10MG10 MG PO
[2021-08-19 18:26] VITALS: BP 140/84
[2021-08-20 06:03] VITALS: BP 143/78
[2021-08-20 18:21] VITALS: BP 139/72
[2021-08-21 05:58] VITALS: BP 115/56
[2021-08-21 07:43] LABS: EOS # 0.02 K/mm3 (0.04-0.40); EOS % 0.2 % (1.0-5.0); HEMATOCRIT 40.3 % (37.0-47.0); HEMOGLOBIN 12.5 g/dL (12.5-16.0); LYMPH# 0.63 K/mm3 (1.50-4.00); MEAN CELL VOLUME 88 fl (78-100); MEAN CORPUSCULAR HEMOGLOBIN 27 pg (27-31); MEAN CORPUSCULAR HGB CONC 31 g/dL (33-37); MEAN PLATELET VOLUME 9.5 fl (7.4-10.4); MONO # 0.53 K/mm3 (0.20-0.80); NEU # 8.59 K/mm3 (1.40-6.50); PLATELET COUNT 271 K/mm3 (130-400); RED BLOOD COUNT 4.58 M/mm3 (4.10-5.30); RED CELL DISTRIBUTION WIDTH 14.4 % (11.5-14.5); WHITE BLOOD COUNT 10.2 K/mm3 (4.8-10.8)
[2021-08-21 07:52] LABS: POTASSIUM 4.7 mmol/L (3.5-5.1)
[2021-08-21 07:54] LABS: CALCIUM 9.1 mg/dL (8.3-10.5)
[2021-08-21 14:40] VITALS: BP 133/71
[2021-08-22 06:02] VITALS: BP 122/76
[2021-08-22 18:15] VITALS: BP 115/63
[2021-08-23 06:28] VITALS: BP 148/65
[2021-08-23 18:00] VITALS: BP 144/67
[2021-08-24 05:45] VITALS: BP 124/72
[2021-08-24 18:15] VITALS: BP 108/66
[2021-08-25 05:56] VITALS: BP 136/66
[2021-08-25] MEDS ORDERED: GLUCOPHAGE PO (17:21)
== END 2021-08-25 18:00 | disposition home health service (06) | DRG 947 ==
LOC: MED/SURG 10:49
PROVIDERS: ADMIT Physician Assistant
DX: R53.81 Other malaise (principal); U07.1 COVID-19; Z94.0 Kidney transplant status; E11.9 Type 2 diabetes mellitus without complications; I10 Essential (primary) hypertension; Z96.643 Presence of artificial hip joint, bilateral; Z79.52 Long term (current) use of systemic steroids
CPT/HCPCS: J1650; J1815; J7512; J7517

== ENCOUNTER 2021-09-01 11:11 | Emergency (ER) | payer MEDICARE ==
[~2021-09-01] VITALS: Ht 170.2 cm; Wt 113.7 kg
[~2021-09-01 11:11] MED LIST changes: +GLUCOPHAGE PO
[2021-09-01 12:16] LABS: HEMATOCRIT 43.1 % (37.0-47.0); MEAN CELL VOLUME 87 fl (78-100); MEAN CORPUSCULAR HEMOGLOBIN 28 pg (27-31); MEAN CORPUSCULAR HGB CONC 33 g/dL (33-37); PLATELET COUNT 83 K/mm3 (130-400); RED BLOOD COUNT 4.98 M/mm3 (4.10-5.30); RED CELL DISTRIBUTION WIDTH 15.4 % (11.5-14.5)
[2021-09-01 12:23] LABS: ALBUMIN 3.5 g/dL (3.4-4.8); POTASSIUM 5.1 mmol/L (3.5-5.1); SODIUM 132 mmol/L (136-145)
[2021-09-01 12:24] LABS: WHITE BLOOD COUNT 28.8 K/mm3 (4.8-10.8)
[2021-09-01 12:25] LABS: CALCIUM 9.2 mg/dL (8.3-10.5)
[2021-09-01 12:26] LABS: TOTAL PROTEIN 6.7 g/dL (6.2-8.1)
[2021-09-01 12:27] LABS: URINE APPEARANCE CLOUDY; URINE COLOR AMBER
[2021-09-01 12:28] LABS: URINE BILIRUBIN NEGATIVE (NEGATIVE); URINE BLOOD 250 ery/uL (NEGATIVE); URINE KETONE NEGATIVE (NEGATIVE); URINE LEUKOCYTE ESTERASE TRACE (NEGATIVE); URINE MUCUS PRESENT (NOT PRESENT); URINE NITRATE NEGATIVE (NEGATIVE); URINE PROTEIN(semi-quant) 2+ (NEGATIVE); URINE UROBILINOGEN NORMAL (NORMAL)
[2021-09-01 12:28] LABS: TOTAL BILIRUBIN 1.7 mg/dL (0.2-1.2)
[2021-09-01 12:31] LABS: AST-SGOT 18 U/L (5-34)
[2021-09-01 12:32] LABS: ALT/SGPT 25 U/L (0-55)
[2021-09-01 12:35] LABS: GLUCOSE 456 mg/dL (65-105)
[2021-09-01 12:37] LABS: CARBON DIOXIDE 17 mmol/L (23-31)
[2021-09-01 12:39] LABS: TROPONIN-I < 0.030 ng/mL (<0.030)
[2021-09-01 13:03] LABS: BAND 10 % (0-10); LYMPHOCYTE 3 % (20-51); MONOCYTE 5 % (3-10); NEUTROPHILS 82 % (42-75)
[2021-09-01 17:24] LABS: D-DIMER 1.22 mg/L FEU (0.15-0.50)
[2021-09-01 19:45] VITALS: BP 108/54
== END 2021-09-01 19:45 | disposition short-term general hospital (02) ==
LOC: ED 11:11
PROVIDERS: Nurse Practitioner
DX: A41.9 Sepsis, unspecified organism (principal); Z94.0 Kidney transplant status; W19.XXXA Unspecified fall, initial encounter
CPT/HCPCS: J0696; J1815; J7030

== ENCOUNTER 2021-09-24 15:32 | Emergency (ER) | payer MEDICARE ==
[~2021-09-24] VITALS: Wt 121.8 kg
[2021-09-24 17:03] LABS: ALBUMIN 3.4 g/dL (3.4-4.8); POTASSIUM 4.2 mmol/L (3.5-5.1)
[2021-09-24 17:04] LABS: CALCIUM 9.3 mg/dL (8.3-10.5)
[2021-09-24 17:05] LABS: TOTAL PROTEIN 6.1 g/dL (6.2-8.1)
[2021-09-24 17:07] LABS: TOTAL BILIRUBIN 0.4 mg/dL (0.2-1.2)
[2021-09-24] MEDS ORDERED: AMLODIPINE BESYL5 MG PO (17:16)
[2021-09-24 17:40] VITALS: BP 120/66
[2021-09-24] MEDS ORDERED: GLUCOTROL 5M5 MG/TAB PO (20:05)
[2021-09-24] MEDS ORDERED: LEVOFLOXACIN500 M1 PO (20:06)
[2021-09-24] MEDS ORDERED: PREDNISONE 5MG5 MG PO (20:07)
== END 2021-09-24 18:25 | disposition home or self-care (01) ==
LOC: ED 15:32
PROVIDERS: Family Medicine
DX: R05.9 Cough, unspecified (principal)
CPT/HCPCS: J0696

== ENCOUNTER → 2021-10-16 | Outpatient (CLI) | payer MEDICARE, OTHER ==
[~2021-10-16] MED LIST changes: +GLUCOTROL 5M5 MG/TAB PO; +LEVOFLOXACIN500 M1 PO
[2021-10-16 18:22] LABS: URINE APPEARANCE CLEAR; URINE BILIRUBIN NEGATIVE (NEGATIVE); URINE BLOOD NEGATIVE (NEGATIVE); URINE COLOR YELLOW; URINE GLUCOSE NEGATIVE (NEGATIVE); URINE KETONE NEGATIVE (NEGATIVE); URINE LEUKOCYTE ESTERASE NEGATIVE (NEGATIVE); URINE MUCUS PRESENT (NOT PRESENT); URINE NITRATE NEGATIVE (NEGATIVE); URINE PROTEIN(semi-quant) 1+ (NEGATIVE); URINE UROBILINOGEN NORMAL (NORMAL); URINE WBC 0-1 /hpf (0-3)
== END ==
LOC: LAB 15:08
PROVIDERS: Family Medicine
DX: E03.4 Atrophy of thyroid (acquired) (principal); G47.00 Insomnia, unspecified; K90.9 Intestinal malabsorption, unspecified; G47.33 Obstructive sleep apnea (adult) (pediatric); M85.80 Other specified disorders of bone density and structure, unspecified site; E55.9 Vitamin D deficiency, unspecified; N39.0 Urinary tract infection, site not specified; R53.1 Weakness; Z94.0 Kidney transplant status

== ENCOUNTER → 2022-01-20 | Outpatient (CLI) | payer MEDICARE ==
[2022-01-20 15:18] LABS: POTASSIUM 4.3 mmol/L (3.5-5.1)
[2022-01-20 15:19] LABS: CALCIUM 9.8 mg/dL (8.3-10.5)
== END ==
LOC: LAB 11:05
PROVIDERS: Internal Medicine Nephrology
DX: R79.89 Other specified abnormal findings of blood chemistry (principal)

== ENCOUNTER → 2022-05-20 | Outpatient (CLI) | payer MEDICARE ==
[2022-05-20 12:09] LABS: EOS # 0.14 K/mm3 (0.04-0.40); HEMATOCRIT 42.7 % (37.0-47.0); HEMOGLOBIN 13.7 g/dL (12.5-16.0); LYMPH# 0.97 K/mm3 (1.50-4.00); MEAN CELL VOLUME 86 fl (78-100); MEAN CORPUSCULAR HEMOGLOBIN 28 pg (27-31); MEAN CORPUSCULAR HGB CONC 32 g/dL (33-37); MEAN PLATELET VOLUME 8.9 fl (7.4-10.4); NEU # 12.54 K/mm3 (1.40-6.50); PLATELET COUNT 194 K/mm3 (130-400); RED BLOOD COUNT 4.99 M/mm3 (4.10-5.30); RED CELL DISTRIBUTION WIDTH 15.2 % (11.5-14.5); WHITE BLOOD COUNT 14.4 K/mm3 (4.8-10.8)
[2022-05-20 12:15] LABS: ALBUMIN 4.1 g/dL (3.4-4.8); POTASSIUM 3.9 mmol/L (3.5-5.1)
[2022-05-20 12:17] LABS: CALCIUM 9.9 mg/dL (8.3-10.5)
[2022-05-20 12:20] LABS: TOTAL BILIRUBIN 0.5 mg/dL (0.2-1.2)
[2022-05-20 12:24] LABS: MAGNESIUM 1.67 mg/dL (1.60-2.60)
[2022-05-20 22:31] LABS: PTH,INTACT 128.7 pg/mL (6.6-88.9)
[2022-05-21 14:51] LABS: TACROLIMUS (PROGRAF) 18.9 ng/mL (5.0-15.0)
== END ==
LOC: LAB 11:36
PROVIDERS: Internal Medicine Nephrology
DX: N18.31 Chronic kidney disease, stage 3a (principal); Z94.0 Kidney transplant status; E11.21 Type 2 diabetes mellitus with diabetic nephropathy

== ENCOUNTER → 2022-08-18 | Outpatient (CLI) | payer MEDICARE ==
[~2022-08-18] MED LIST changes: +CEFDINIR300 MG PO; +POLYOX95%
== END ==
LOC: LAB 14:45
DX: U07.1 COVID-19 (principal)

== ENCOUNTER → 2022-10-22 | Outpatient (CLI) | payer MEDICARE | LOC: LAB 16:05 | DX: Z94.0 Kidney transplant status (principal) ==

== ENCOUNTER → 2022-10-26 | Outpatient (CLI) | payer MEDICARE | LOC: RAD 10:00 | DX: N28.89 Other specified disorders of kidney and ureter (principal) | CPT/HCPCS: Q9967 ==

== ENCOUNTER → 2023-06-14 | Outpatient (CLI) | payer MEDICARE, OTHER ==
[2023-06-14 14:19] LABS: BASO # 0.01 K/mm3 (0.02-0.10); EOS # 0.25 K/mm3 (0.04-0.40); EOS % 1.8 % (1.0-5.0); HEMATOCRIT 41.8 % (37.0-47.0); HEMOGLOBIN 13.5 g/dL (12.5-16.0); LYMPH# 1.18 K/mm3 (1.50-4.00); MEAN CELL VOLUME 88 fl (78-100); MEAN CORPUSCULAR HEMOGLOBIN 28 pg (27-31); MEAN CORPUSCULAR HGB CONC 32 g/dL (33-37); MEAN PLATELET VOLUME 9.3 fl (7.4-10.4); MONO # 0.65 K/mm3 (0.20-0.80); NEU # 11.61 K/mm3 (1.40-6.50); PLATELET COUNT 188 K/mm3 (130-400); RED BLOOD COUNT 4.75 M/mm3 (4.10-5.30); WHITE BLOOD COUNT 13.8 K/mm3 (4.8-10.8)
[2023-06-14 14:35] LABS: ALBUMIN 3.9 g/dL (3.4-4.8); POTASSIUM 3.9 mmol/L (3.5-5.1)
[2023-06-14 14:36] LABS: CALCIUM 9.6 mg/dL (8.3-10.5)
[2023-06-14 14:37] LABS: TOTAL PROTEIN 6.6 g/dL (6.2-8.1)
[2023-06-14 14:39] LABS: TOTAL BILIRUBIN 0.5 mg/dL (0.2-1.2)
[2023-06-14 14:44] LABS: MAGNESIUM 1.46 mg/dL (1.60-2.60)
[2023-06-15 00:16] LABS: TACROLIMUS (PROGRAF) 7.6 ng/mL (5.0-15.0)
[2023-06-16 16:42] LABS: PTH,INTACT 53.3 pg/mL (6.6-88.9)
== END ==
LOC: LAB 13:48
PROVIDERS: Family Medicine
DX: E55.9 Vitamin D deficiency, unspecified (principal); E11.21 Type 2 diabetes mellitus with diabetic nephropathy; E11.22 Type 2 diabetes mellitus with diabetic chronic kidney disease; N18.31 Chronic kidney disease, stage 3a; I12.9 Hypertensive chronic kidney disease with stage 1 through stage 4 chronic kidney disease, or unspecified chronic kidney disease; N25.81 Secondary hyperparathyroidism of renal origin; Z94.0 Kidney transplant status

== ENCOUNTER → 2023-06-15 | Outpatient (CLI) | payer MEDICARE, OTHER | LOC: LAB 13:17 | DX: I12.9 Hypertensive chronic kidney disease with stage 1 through stage 4 chronic kidney disease, or unspecified chronic kidney disease (principal); N18.31 Chronic kidney disease, stage 3a; E11.21 Type 2 diabetes mellitus with diabetic nephropathy; N25.81 Secondary hyperparathyroidism of renal origin; Z94.0 Kidney transplant status ==

== ENCOUNTER 2023-07-15 15:05 | Emergency (ER) | payer MEDICARE, OTHER ==
[~2023-07-15] VITALS: Ht 170.2 cm; Wt 115.1 kg
[2023-07-15 16:47] LABS: BASO # 0.01 K/mm3 (0.02-0.10); HEMATOCRIT 45.8 % (37.0-47.0); HEMOGLOBIN 14.9 g/dL (12.5-16.0); MEAN CELL VOLUME 86 fl (78-100); MEAN CORPUSCULAR HEMOGLOBIN 28 pg (27-31); MEAN CORPUSCULAR HGB CONC 33 g/dL (33-37); MEAN PLATELET VOLUME 9.4 fl (7.4-10.4); NEU # 17.94 K/mm3 (1.40-6.50); PLATELET COUNT 149 K/mm3 (130-400); RED BLOOD COUNT 5.34 M/mm3 (4.10-5.30); RED CELL DISTRIBUTION WIDTH 14.4 % (11.5-14.5); WHITE BLOOD COUNT 19.9 K/mm3 (4.8-10.8)
[2023-07-15 16:49] LABS: ALBUMIN 3.9 g/dL (3.4-4.8)
[2023-07-15 16:52] LABS: CALCIUM 9.8 mg/dL (8.3-10.5)
[2023-07-15 16:53] LABS: TOTAL BILIRUBIN 1.1 mg/dL (0.2-1.2); TOTAL PROTEIN 7.2 g/dL (6.2-8.1)
[2023-07-15 18:28] LABS: URINE APPEARANCE CLOUDY; URINE BLOOD 50 ery/uL (NEGATIVE); URINE COLOR YELLOW; URINE LEUKOCYTE ESTERASE TRACE (NEGATIVE); URINE NITRATE POSITIVE (NEGATIVE); URINE PROTEIN(semi-quant) TRACE (NEGATIVE)
[2023-07-15 18:29] LABS: URINE BILIRUBIN NEGATIVE (NEGATIVE); URINE KETONE 1+ (NEGATIVE); URINE UROBILINOGEN NORMAL (NORMAL)
[2023-07-15] MEDS ORDERED: ZOFRAN ODT4 MG PO (21:53)
[2023-07-15] MEDS ORDERED: CEFDINIR300 MG PO (21:53)
[2023-07-16 00:12] VITALS: BP 93/71
== END 2023-07-15 23:32 | disposition home or self-care (01) ==
LOC: ED 15:05
PROVIDERS: Nurse Practitioner
DX: A08.4 Viral intestinal infection, unspecified (principal); E11.9 Type 2 diabetes mellitus without complications; N39.0 Urinary tract infection, site not specified; E86.9 Volume depletion, unspecified; E66.9 Obesity, unspecified; Z91.040 Latex allergy status
CPT/HCPCS: J0696; J1815; J7030

== ENCOUNTER → 2024-01-17 | Outpatient (CLI) | payer MEDICARE ==
[~2024-01-17] MED LIST changes: +ZOFRAN ODT4 MG PO
== END ==
LOC: RAD 14:16
DX: R07.9 Chest pain, unspecified (principal); W19.XXXA Unspecified fall, initial encounter

== ENCOUNTER → 2024-06-14 | Outpatient (CLI) | payer MEDICARE, MEDICAID ==
[2024-06-14 10:50] LABS: CALCIUM 9.5 mg/dL (8.3-10.5)
== END ==
LOC: LAB 10:14
PROVIDERS: Internal Medicine Nephrology
DX: E11.21 Type 2 diabetes mellitus with diabetic nephropathy (principal); I12.9 Hypertensive chronic kidney disease with stage 1 through stage 4 chronic kidney disease, or unspecified chronic kidney disease; N18.31 Chronic kidney disease, stage 3a; E11.22 Type 2 diabetes mellitus with diabetic chronic kidney disease

== ENCOUNTER → 2024-06-18 | Outpatient (CLI) | payer MEDICARE, MEDICAID | LOC: LAB 13:28 | DX: Z94.0 Kidney transplant status (principal) ==

== ENCOUNTER → 2024-06-20 | Outpatient (CLI) | payer MEDICARE, MEDICAID ==
[2024-06-20 13:55] LABS: BASO # 0.01 K/mm3 (0.02-0.10); EOS # 0.28 K/mm3 (0.04-0.40); EOS % 1.7 % (1.0-5.0); HEMOGLOBIN 14.8 g/dL (12.5-16.0); LYMPH# 1.33 K/mm3 (1.50-4.00); MEAN CELL VOLUME 87 fl (78-100); MEAN CORPUSCULAR HEMOGLOBIN 28 pg (27-31); MEAN CORPUSCULAR HGB CONC 32 g/dL (33-37); MEAN PLATELET VOLUME 9.4 fl (7.4-10.4); MONO # 0.66 K/mm3 (0.20-0.80); NEU # 13.76 K/mm3 (1.40-6.50); PLATELET COUNT 198 K/mm3 (130-400); RED BLOOD COUNT 5.29 M/mm3 (4.10-5.30); RED CELL DISTRIBUTION WIDTH 14.3 % (11.5-14.5); WHITE BLOOD COUNT 16.2 K/mm3 (4.8-10.8)
[2024-06-20 14:15] LABS: ALBUMIN 4.3 g/dL (3.4-4.8)
[2024-06-20 14:18] LABS: TOTAL PROTEIN 7.2 g/dL (6.2-8.1)
[2024-06-20 14:56] LABS: TOTAL BILIRUBIN 0.6 mg/dL (0.2-1.2)
== END ==
LOC: LAB 12:19
PROVIDERS: Nurse Practitioner
DX: I10 Essential (primary) hypertension (principal); E11.9 Type 2 diabetes mellitus without complications; E03.4 Atrophy of thyroid (acquired); E55.9 Vitamin D deficiency, unspecified; E78.5 Hyperlipidemia, unspecified